=== PATIENT | female | born 1990 | race Caucasian/White ===

== ENCOUNTER 2017-01-07 15:24 | Outpatient (CLI) | payer OTHER | END 2017-01-07 15:25 | disposition home or self-care (01) | DX: G47.33 Obstructive sleep apnea (adult) (pediatric) (principal) ==

== ENCOUNTER 2017-08-19 13:38 | Outpatient (CLI) | payer OTHER | END 2017-08-19 13:39 | disposition home or self-care (01) | LOC: SC 13:38 | PROVIDERS: ATTEND Nurse Practitioner Family | DX: G47.33 Obstructive sleep apnea (adult) (pediatric) (principal) | CPT/HCPCS: 99212; 99213 ==

== ENCOUNTER 2017-10-22 15:53 | Outpatient (CLI) | payer OTHER | END 2017-10-22 15:54 | disposition home or self-care (01) | LOC: SC 15:53 | PROVIDERS: ATTEND Nurse Practitioner Family | DX: G47.33 Obstructive sleep apnea (adult) (pediatric) (principal) | CPT/HCPCS: 99212; 99213 ==

== ENCOUNTER 2018-02-09 12:51 | Inpatient (IN) | payer OTHER ==
[2018-02-09] MEDS ORDERED: ONDANSETRON 4 MG/2 ML VIAL IVP STA ×2 (13:05→16:57)
[2018-02-09] MEDS ORDERED: SODIUM CHLORIDE 0.9% 1,000 ML IV ONE ×3 (13:05→16:57)
[2018-02-09] MEDS ORDERED: ACETAMINOPHEN 325 MG TABLET PO STA (13:05)
[2018-02-09 13:18] LABS: BASOPHILS % (AUTO) 0.4 %; EOSINOPHILS # (AUTO) 0.1 10^3/uL (0.0-0.7); EOSINOPHILS % (AUTO) 0.8 %; HGB - HEMOGLOBIN 14.2 g/dL (12.0-16.0); LYMPHOCYTES # (AUTO) 0.7 10^3/uL (1.5-3.5); LYMPHOCYTES % (AUTO) 9.2 %; MEAN CORPUSCULAR HEMOGLOBIN 28.9 pg (27.0-31.0); MEAN CORPUSCULAR HGB CONC 34.3 g/dL (32.0-36.0); MEAN CORPUSCULAR VOLUME 84.3 fL (81.0-99.0); MEAN PLATELET VOLUME 8.1 fL (7.9-10.8); MONOCYTES # (AUTO) 0.8 10^3/uL (0.0-1.0); MONOCYTES % (AUTO) 11.1 %; NEUTROPHILS # (AUTO) 5.8 10^3/uL (1.5-6.6); NEUTROPHILS % (AUTO) 78.5 %; PLT - PLATELET COUNT 178 10^3/uL (130-450); RED BLOOD COUNT 4.92 10^6/uL (4.20-5.40); WHITE BLOOD COUNT 7.4 x10^3/uL (4.8-10.8)
[2018-02-09 13:23] LABS: CALCIUM 9.1 mg/dL (8.5-10.3); CREATININE 0.7 mg/dL (0.4-1.0)
--- NOTE | 2018-02-09 14:26 | ED Physician Documentation ---
History of Present Illness - Stated complaint Stated Complaint: DIFF BREATHING/DIZZY - Chief complaint Chief Complaint: Neuro - Additonal information Additional information: hx from pt 27 female healthy and denies preg felt fine yesterday awoke this am with fatigue, myalgias nausea, sore throat then developed a 5/10 ABURTO and neck pain and ABURTO comes in waves that radiate down her back also soa / tachypneic / gasping arrives in ER tearful tachy febrile edematous hands and face no rash no cough no diarrhea no urinary sx Review of Systems Constitutional: reports: Fever, Chills, Myalgias, Fatigue Ears: denies: Ear pain Throat: reports: Sore throat Respiratory: denies: Cough GI: reports: Nausea. 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 - Present Medications Home Medications: Ambulatory Orders Medication Instructions Recorded Confirmed Pt Does Not Know Meds 06/18/16 - Allergies Allergies/Adverse Reactions: Allergies Allergy/AdvReac Type Severity Reaction Status Date / Time No Known Drug Allergies Allergy Verified 01/01/14 09:58 - Social History Does the pt smoke?: No Smoking Status: Never smoker Does the pt drink ETOH?: No Does the pt have substance abuse?: No - Immunizations Immunizations are current?: Yes - POLST Patient has POLST: No PD ED PE NORMAL - Vitals Vital signs reviewed: Yes - General General: Alert and oriented X 3, Other (tearful gasping) - HEENT HEENT: PERRL - Neck Neck: No: Supple, no meningeal sign (painful to flex) - Cardiac Cardiac: RRR (tachy no murmur appreciated) - Respiratory Respiratory: No respiratory distress, Clear bilaterally, Other (tachypneic) - Abdomen Abdomen: Soft, Non tender - Derm Derm: No rash - Extremities Extremities: Other (edematous hands) - Neuro Neuro: Alert and oriented X 3 Eye Opening: Spontaneous Motor: Obeys Commands Verbal: Oriented GCS Score: 15 Results - Vitals Vitals: Vital Signs - 24 hr 02/09/18 02/09/18 02/09/18 12:54 15:08 16:30 Temperature 38.0 C H 37.3 C Heart Rate 139 H 129 H 126 H Respiratory 30 H 19 20 Rate Blood Pressure 140/90 H 127/76 127/72 O2 Saturation 100 99 98 02/09/18 18:24 Temperature Heart Rate 130 H Respiratory 18 Rate Blood Pressure 121/75 O2 Saturation 99 Oxygen O2 Source Room air - EKG (time done) 1306 Rate: Rate (enter#) (139) Rhythm: Sinus tachycardia [place]: Normal Ischemia: Normal ST segments - Labs Labs: Microbiology 02/09/18 18:05 CSF Culture - Preliminary Cerebral Spinal Fluid Laboratory Tests 02/09/18 02/09/18 02/09/18 13:10 13:10 13:10 WBC 7.4 RBC 4.92 Hgb 14.2 Hct 41.5 MCV 84.3 MCH 28.9 MCHC 34.3 RDW 13.0 Plt Count 178 MPV 8.1 Neut # 5.8 Lymph # 0.7 L [place] # 0.8 Eos # 0.1 Baso # 0.0 Absolute Nucleated RBC 0.00 Nucleated RBC % 0.0 D-Dimer Sodium 134 L Potassium 3.9 Chloride 101 Carbon Dioxide 23 Anion Gap 10.0 BUN 12 Creatinine 0.7 Estimated GFR (MDRD) 100 Glucose 98 Calcium 9.1 TSH Urine Color Urine Clarity Urine pH Ur Specific [place] Urine Protein Urine Glucose (UA) Urine Ketones Urine Occult Blood Urine Nitrite Urine Bilirubin Urine Urobilinogen Ur Leukocyte Esterase Ur Microscopic Review Urine Culture Comments Urine HCG, Qual CSF Color CSF Clarity Xanthrochromic CSF WBC CSF RBC CSF Cell Count Tube # CSF Glucose CSF Total Protein Urine Opiates Screen Ur Oxycodone Screen Urine Methadone Screen Ur Propoxyphene Screen Ur Barbiturates Screen Ur Tricyclics Screen Ur Phencyclidine Scrn Ur Amphetamine Screen U Methamphetamines Scrn U Benzodiazepines Scrn Urine Cocaine Screen U Cannabinoids Screen Influenza A (Rapid) Influenza B (Rapid) Influenza Types A,B Ag Group A Strep Rapid Negative 02/09/18 02/09/18 02/09/18 13:10 13:10 13:10 WBC RBC Hgb Hct MCV MCH MCHC RDW Plt Count MPV Neut # Lymph # [place] # Eos # Baso # Absolute Nucleated RBC Nucleated RBC % D-Dimer 201.0 Sodium Potassium Chloride Carbon Dioxide Anion Gap BUN Creatinine Estimated GFR (MDRD) Glucose Calcium TSH 0.63 Urine Color Urine Clarity Urine pH Ur Specific [place] Urine Protein Urine Glucose (UA) Urine Ketones Urine Occult Blood Urine Nitrite Urine Bilirubin Urine Urobilinogen Ur Leukocyte Esterase Ur Microscopic Review Urine Culture Comments Urine HCG, Qual CSF Color CSF Clarity Xanthrochromic CSF WBC CSF RBC CSF Cell Count Tube # CSF Glucose CSF Total Protein Urine Opiates Screen Ur Oxycodone Screen Urine Methadone Screen Ur Propoxyphene Screen Ur Barbiturates Screen Ur Tricyclics Screen Ur Phencyclidine Scrn Ur Amphetamine Screen U Methamphetamines Scrn U Benzodiazepines Scrn Urine Cocaine Screen U Cannabinoids Screen Influenza A (Rapid) Negative Influenza B (Rapid) Negative Influenza Types A,B Ag - Group A Strep Rapid 02/09/18 02/09/18 02/09/18 14:32 14:32 18:05 WBC RBC Hgb Hct MCV MCH MCHC RDW Plt Count MPV Neut # Lymph # [place] # Eos # Baso # Absolute Nucleated RBC Nucleated RBC % D-Dimer Sodium Potassium Chloride Carbon Dioxide Anion Gap BUN Creatinine Estimated GFR (MDRD) Glucose Calcium TSH Urine Color YELLOW Urine Clarity CLEAR Urine pH 7.0 Ur Specific [place] <=1.005 Urine Protein NEGATIVE Urine Glucose (UA) NEGATIVE Urine Ketones 15 H Urine Occult Blood NEGATIVE Urine Nitrite NEGATIVE Urine Bilirubin NEGATIVE Urine Urobilinogen 0.2 (NORMAL) Ur Leukocyte Esterase NEGATIVE Ur Microscopic Review NOT INDICATED Urine Culture Comments NOT INDICATED Urine HCG, Qual NEGATIVE CSF Color COLORLESS CSF Clarity CLEAR Xanthrochromic ABSENT CSF WBC 1 CSF RBC 400 H CSF Cell Count Tube # CSF TUBE# 3 CSF Glucose 55 CSF Total Protein 43 Urine Opiates Screen NEGATIVE Ur Oxycodone Screen NEGATIVE Urine Methadone Screen NEGATIVE Ur Propoxyphene Screen NEGATIVE Ur Barbiturates Screen NEGATIVE Ur Tricyclics Screen NEGATIVE Ur Phencyclidine Scrn NEGATIVE Ur Amphetamine Screen NEGATIVE U Methamphetamines Scrn NEGATIVE U Benzodiazepines Scrn NEGATIVE Urine Cocaine Screen NEGATIVE U Cannabinoids Screen NEGATIVE Influenza A (Rapid) Influenza B (Rapid) Influenza Types A,B Ag Group A Strep Rapid - Rads (name of study) CXR Radiology: See rad report (per my read poor insp but no acute process, per rad read possible RML infiltrate) CTH Radiology: See rad report (neg) PD MEDICAL DECISION MAKING - ED course ED course: acute febrile illness her primary complaint is her severe ABURTO and neck pain, SOA not her primary concern, no cough in ER neg flu swab neg rapid strep CXR neg per my read (later rad read = possible RLL atelectasis vs pna) UA neg (HCG too) d-dimer neg (and pt with no OCP smoking travel or other risk factors - doubt PE) nl CBC nl chem concern for meningitis both ER docs tried several times to LP - even with sono guidance unable - so gave 2 g rocephin - will CT - asked anesthesia to assist anesthesia able to get LP with long needle - bloody tap but cleared -sent to lab LP neg for infection, + RBC but was a bloody tap with visible clearing across tubes, only 1 WBC no organisms on gram stain CTH neg despite IVF X 3L, pain meds, antipyretic, zofran versed for tap, rocephin and then zmax pt remains stead sinus tach at approx 130 added on MUDDS and TSH (both WNL) will need admit as still very tachy and etiology unclear - for continued symptomatic support and awaiting blood/urine/CSF/throat cultures spoke with hospitalist at 1930 - will admit inpt by my read CXR poor insp but no consolidation - but rad notes possible RLL airspace dz pna vs atelectasis - pt not coughing etc - so added zmax to pts rocephin - pt and hospitalist updated hsopitalist to ER to eval pt and did beside echo which was nl with EF 55% and no pericardial effusins, no vegetations seen though limited bedside TT not diagnostic for endocarditis Departure - Departure Disposition: 66 [facility] DC/Xfer Clinical Impression: Febrile illness, Abnormal chest xray Headache Qualifiers: Headache type: unspecified Headache chronicity pattern: unspecified pattern Intractability: intractable Qualified Code(s): R51 - Headache Condition: Fair
[2018-02-09 14:53] LABS: BILIRUBIN,URINE NEGATIVE (NEGATIVE); GLUCOSE, URINE (UA) NEGATIVE (NEGATIVE); KETONES,URINE (UA) 15 mg/dL (NEGATIVE); LEUKOCYTE ESTERASE, URINE NEGATIVE (NEGATIVE); NITRITE,URINE NEGATIVE (NEGATIVE); OCCULT BLOOD,URINE NEGATIVE (NEGATIVE); PROTEIN,URINE NEGATIVE (NEGATIVE); UROBILINOGEN,URINE 0.2 (NORMAL) E.U./dL (NORMAL)
[2018-02-09 14:56] LABS: CLARITY,URINE CLEAR (CLEAR); HCG UR QUAL NEGATIVE
[2018-02-09] MEDS ORDERED: HYDROmorphone 1 MG/ML SYRINGE IVP STA ×2 (15:09→16:57)
--- NOTE | 2018-02-09 16:11 | XRAY Report ---
EXAM: CHEST RADIOGRAPHY EXAM DATE: 02/09/2018 03:52 PM. CLINICAL HISTORY: Shortness of breath and fever. COMPARISON: None. TECHNIQUE: 2 views. FINDINGS: Lungs/Pleura: Low lung volumes. No pleural effusion or pneumothorax. Bronchial wall thickening with m inimal right lower lobe airspace disease. Mediastinum: Heart and mediastinal contours are unremarkable. Other: None. IMPRESSION: Bronchial wall thickening with minimal right lower lobe airspace disease consistent with atelectasis or pneumonia. [facility] Referring Provider Line: [phone] SITE ID: [id number]
[2018-02-09] MEDS ORDERED: HYDROmorphone 1 MG/ML SYRINGE ONE (16:48)
[2018-02-09] MEDS ORDERED: LIDOCAINE 1% 2 ML VIAL ONE ×3 (16:52→17:51)
[2018-02-09] MEDS ORDERED: ONDANSETRON 4 MG/2 ML VIAL ONE (16:54)
[2018-02-09] MEDS ORDERED: MIDAZOLAM 2 MG/2 ML VIAL IVP STA (16:57)
[2018-02-09] MEDS ORDERED: cefTRIAXone 2 GM in SODIUM CHLORIDE 0.9% MINIBAG 100 ML IV STA (17:14)
[2018-02-09 18:33] LABS: CSF - GLUCOSE 55 mg/dL (45-70)
[2018-02-09 18:42] LABS: CSF TUBE # CSF TUBE# 3
[2018-02-09 18:43] LABS: CLARITY,CSF CLEAR (CLEAR); COLOR,CSF COLORLESS (COLORLESS); CSF XANTHOCHROMIA ABSENT (ABSENT); RED BLOOD CELL,CSF 400 /mm^3 (0-1); WHITE BLOOD CELL,CSF 1 /mm^3 (0-5)
[2018-02-09 18:53] LABS: MUDS CUTOFF CONCENTRATIONS CUTOFF CONC BELOW:
[2018-02-09 19:04] LABS: AMPHETAMINE SCREEN,URINE NEGATIVE (NEGATIVE); BENZODIAZEPINES SCREEN, URINE NEGATIVE (NEGATIVE); COCAINE SCREEN URINE NEGATIVE (NEGATIVE); METHADONE SCREEN, URINE NEGATIVE (NEGATIVE); METHAMPHETAMINES SCREEN, URINE NEGATIVE (NEGATIVE); OPIATE SCREEN, URINE NEGATIVE (NEGATIVE); OXYCODONE SCREEN, URINE NEGATIVE (NEGATIVE); PROPOXYPHENE SCREEN, URINE NEGATIVE (NEGATIVE); TRICYCLIC ANTIDEPRESSANT,URINE NEGATIVE (NEGATIVE)
[2018-02-09] MEDS ORDERED: ACETAMINOPHEN 1,000 MG/100 ML 100 ML IV STA (19:07)
--- NOTE | 2018-02-09 19:07 | CT Report ---
EXAM: CT HEAD EXAM DATE: 02/09/2018 06:50 PM. CLINICAL HISTORY: Fever headache, bloody tap, question intracranial hemorrhage. COMPARISON: MR brain 02-25-16. TECHNIQUE: Multiaxial CT images were obtained from the foramen magnum to the vertex. Reformats: Coron al. IV contrast: None. In accordance with CT protocol optimization, one or more of the following dose reduction techniques w ere utilized for this exam: automated exposure control, adjustment of mA and/or KV based on patient s ize, or use of iterative reconstructive technique. FINDINGS: Parenchyma: No intraparenchymal hemorrhage. No evidence of mass, midline shift, or CT findings of inf arction. Maurer-white differentiation is distinct. Extraaxial Spaces: Normal for age. No subdural or epidural collections identified. Ventricles: Normal in size and position. Sinuses and Orbits: Imaged paranasal sinuses, orbits, and mastoids show no significant abnormality. Bones: No evidence of fracture or calvarial defect. Other: None. IMPRESSION: Normal head CT. [facility] Referring Provider Line: [phone] SITE ID: [id number]
[2018-02-09] MEDS ORDERED: AZITHROMYCIN INJ 500 MG in SODIUM CHLORIDE 0.9% 250 ML IV STA (19:32)
[2018-02-09] MEDS ORDERED: HYDROmorphone 1 MG/ML SYRINGE IVP PRN (20:12)
[2018-02-09] MEDS ORDERED: PROMETHAZINE INJ 25 MG in SODIUM CHLORIDE 0.9% 50 ML IV STA (20:17)
[2018-02-09] MEDS ORDERED: MAGNESIUM SULFATE 2 GRAM 2 GM/50 ML BAG IV SCH (21:16)
[2018-02-09] MEDS ORDERED: SODIUM CHLORIDE FLUSH 0.9% 10 ML SYRINGE ONE (21:59)
[2018-02-09] MEDS: PANTOPRAZOLE 40 MG VIAL IVP SCH (22:01)
[2018-02-09] MEDS: SODIUM CHLORIDE FLUSH 0.9% 10 ML SYRINGE IVP PRN (22:01)
[2018-02-09] MEDS: DEXTROSE 5%-0.9% NACL 1,000 ML IV SCH (22:01)
[2018-02-10] MEDS: SODIUM CHLORIDE FLUSH 0.9% 10 ML SYRINGE IVP SCH ×3 (00:49→16:18)
[2018-02-10] MEDS: ACETAMINOPHEN 1,000 MG/100 ML 100 ML IV PRN (01:00)
[2018-02-10] MEDS: PROCHLORPERAZINE 10 MG/2 ML VIAL IVP PRN ×2 (01:00→18:51)
[2018-02-10] MEDS: SODIUM CHLORIDE FLUSH 0.9% 10 ML SYRINGE IVP PRN ×5 (06:08→14:31)
[2018-02-10] MEDS: PANTOPRAZOLE 40 MG VIAL IVP SCH ×2 (06:08→16:17)
[2018-02-10 06:09] LABS: BASOPHILS % (AUTO) 0.5 %; EOSINOPHILS % (AUTO) 0.1 %; HGB - HEMOGLOBIN 13.1 g/dL (12.0-16.0); LYMPHOCYTES # (AUTO) 0.8 10^3/uL (1.5-3.5); LYMPHOCYTES % (AUTO) 19.6 %; MEAN CORPUSCULAR HEMOGLOBIN 28.5 pg (27.0-31.0); MEAN CORPUSCULAR HGB CONC 33.6 g/dL (32.0-36.0); MEAN CORPUSCULAR VOLUME 84.9 fL (81.0-99.0); MEAN PLATELET VOLUME 8.5 fL (7.9-10.8); MONOCYTES # (AUTO) 0.8 10^3/uL (0.0-1.0); MONOCYTES % (AUTO) 17.9 %; NEUTROPHILS # (AUTO) 2.6 10^3/uL (1.5-6.6); NEUTROPHILS % (AUTO) 61.9 %; PLT - PLATELET COUNT 148 10^3/uL (130-450); RED BLOOD COUNT 4.59 10^6/uL (4.20-5.40); RED CELL DISTRIBUTION WIDTH 13.1 % (12.0-15.0); WHITE BLOOD COUNT 4.3 x10^3/uL (4.8-10.8)
[2018-02-10 06:14] LABS: CALCIUM 7.9 mg/dL (8.5-10.3); CREATININE 0.6 mg/dL (0.4-1.0); MAGNESIUM 2.3 mg/dL (1.7-2.8)
--- NOTE | 2018-02-10 07:25 | HISTORY & PHYSICAL EXAMINATION ---
DATE OF SERVICE: Physician: Conchita Weinstein MD HISTORY OF PRESENT ILLNESS: This is a 27-year-old white female with a history of remote kidney stones and a history of sleep apnea, using CPAP. The patient awoke this morning and started to get a headache that was so bad she had to lie down, this led to overall achiness "as if she was having the flu", and then she developed nausea and dry heaves. Her friends brought her to the emergency room. There, she was noted to have a fever and her headache got worse. She underwent a workup for a source of infection for the fever and headache including chest x-ray, throat culture, blood cultures, urinalysis and culture, and even spinal tap. Her serum white count came back normal. Her head CT did not show any evidence of abnormality and her spinal tap had 1 white blood cell. Chest x-ray is showing pneumonia and she is being admitted for viral syndrome and community-acquired pneumonia. PAST MEDICAL HISTORY: Remote kidney stones and sleep apnea on CPAP. MEDICATIONS AT HOME: None. ALLERGIES: NONE. INHERITED DISEASES: None. SOCIAL HISTORY: Nonsmoker who never smoked, drinks no alcohol, uses no illicit drugs. 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 She lives with 3 young children. REVIEW OF SYSTEMS: Her youngest and second youngest children, of 3, recently had upper respiratory infections including fevers and rhinorrhea. She has been caring for them without the help of her , who is in the [employer] and currently deployed, and is very tired. She has not had rhinorrhea. No other exposure to sick people, or travel or animal bites. The patient denies any prior history of this type of presentation. The patient denies any rash, or abdominal symptoms. Her past kidney stone presentations cause low back pain, not these types of symptoms. Since she has been in the emergency room for 6 hours, she has noticed puffiness of her fingers and ankles (getting iv fluids). A comprehensive ROS was done and all other systems are negative. PHYSICAL EXAMINATION GENERAL: Obese, young, white female. She is in a left lateral decubitus position, nauseated with an emesis basin near her mouth. VITAL SIGNS: Blood pressure 140/90, heart rate 140 in sinus tachycardia, temperature 38 degrees C,, respiratory rate 30, oxygen saturation 100% on room air. HEENT: Unremarkable with moist oral mucosa. NECK: Shows no JVD or carotid bruits. LUNGS: Diminished breath sounds diffusely, but clear. No wheezes or rales. HEART: Heart sounds are distant. No audible murmurs. ABDOMEN: Obese with positive bowel sounds. Nontender. EXTREMITIES: Show trace pretibial edema and trace edema of the fingers. NEUROLOGIC: Grossly intact. LABS: Normal CBC, CMP, troponin, urinalysis, HCG negative, csf fluid had 1 WBC. EKG: Sinus tachycardia, diffuse T-wave flattening. CHEST X-RAY: Minimal right lower lobe airspace disease. IMPRESSION 1. Viral syndrome. 2. Community-acquired pneumonia. 3. Headache with negative head computerized tomography and negative lumbar puncture evaluation for meningitis. 4. Obesity. 5. Sleep apnea, on CPAP. PLAN: Admit the patient for treatment of community-acquired pneumonia with empiric IV antibiotics: Ceftriaxone and Zithromax. Await her cultures, and it will take at least 48 hours for us to determine if the blood culture and CSF cultures are entirely negative. Stop the IV hydration at this rapid rate, which is being used to try to improve the tachycardia. Treat her fever with Tylenol. The tachycardia may respond when her headache is treated. Recommend checking for more rare etiologies for fever in this type of presentation such as Lyme disease, Legionnaires disease, and myocarditis by checking Lyme titer, Legionella titer, and troponins. Obtain an Echo to rule out endocarditis. Start clear liquids and advance her diet if not nauseated. CODE STATUS: FULL CODE. DEEP VENOUS THROMBOSIS PROPHYLAXIS: SCDs. ATTESTATION: The patient is expected to be discharged or transferred to another facility within 96 hours. TD: 02/10/2018 07:24 CLARISA
--- NOTE | 2018-02-10 07:31 | PROVIDER PROGRESS NOTE ---
Subjective - Prog Note Date Prog Note Date: 02/10/18 Prog Note Time: 07:31 - Subjective Pt reports feeling: No change Subjective: Patient complains of "the whole room spinning and blurred vision" when getting up to use the rest room. She denies chest pain, N/V, shortness of breath, or a new cough. Current Medications - Current Medications Current Medications: Active Medications Albuterol/Ipratropium (Duoneb) 3 ml INH TID JERMAINE Albuterol/Ipratropium (Duoneb) 3 ml INH Q4HR PRN PRN Reason: Wheezing Cyclobenzaprine HCl (Flexeril) 5 mg PO TID [facility] Fluticasone Propionate (Flonase) 1 sprays [facility] DAILY [facility] Hydromorphone HCl (Dilaudid Inj Carp) 0.5 mg IVP Q2HR PRN PRN Reason: PAIN 8 - 10 Last Admin: 02/10/18 14:30 Dose: 0.5 mg Dextrose/Sodium Chloride (D5ns) 1,000 mls @ 40 mls/hr IV .Q25H [facility] Last Admin: 02/09/18 22:01 Dose: 40 mls/hr Acetaminophen (Ofirmev) 100 mls @ 400 mls/hr IV Q6HR PRN PRN Reason: Pain or Fever > 38C (100.4F) Last Infusion: 02/10/18 01:15 Dose: Infused Azithromycin 500 mg/ Sodium (Chloride) 250 mls @ 250 mls/hr IV Q24H [facility] Ceftriaxone Sodium 1 gm/ (Sodium Chloride) 100 mls @ 200 mls/hr IV Q24H [facility] Ondansetron HCl (Zofran Odt) 4 mg TL Q4HR PRN PRN Reason: Nausea / Vomiting Oxymetazoline HCl (Afrin) 2 sprays [facility] BID [facility] Stop: 02/13/18 20:59 Pantoprazole Sodium (Protonix) 40 mg IVP BIDAC [facility] Last Admin: 02/10/18 06:08 Dose: 40 mg Polyethylene Glycol (Miralax) 17 gm PO DAILY [facility] Last Admin: 02/10/18 09:21 Dose: Not Given Prochlorperazine Edisylate (Compazine Inj) 10 mg IVP Q6HR PRN PRN Reason: Nausea / Vomiting Last Admin: 02/10/18 01:00 Dose: 10 mg Sodium Chloride (Normal Saline Flush 0.9%) 10 ml IVP PRN PRN PRN Reason: NEEDED PER PROVIDER ORDERS Last Admin: 02/10/18 14:31 Dose: 10 ml Sodium Chloride (Normal Saline Flush 0.9%) 10 ml IVP 0100,0900,1700 JERMAINE Last Admin: 02/10/18 09:21 Dose: Not Given Sodium Chloride (Castro) 2 sprays YOSHI Q4HR PRN PRN Reason: Nasal Congestion No Known Home Medications [No Known Home Medications] 02/10/18 Objective - Vital Signs/Intake & Output Reviewed Vital Signs: Yes Vital Signs: Vital Signs x48h Temp Pulse Resp BP Pulse Ox 02/10/18 05:00 37.3 C 95 16 118/68 96 02/10/18 00:31 37.1 C 109 H 16 117/67 97 Intake & Output: Intake & Output 02/07/18 02/08/18 02/09/18 02/10/18 23:59 23:59 23:59 23:59 Intake Total 421 150 Output Total 600 Balance -179 150 - Objective General Appearance: positive: Alert, Moderate distress, Anxious Eyes Bilateral: positive: Normal inspection ENT: positive: ENT inspection nml, Pharynx nml, Dry mucous membranes, Other ( tympanic membranes bilaterally have fluid appearance.) Neck: positive: Nml inspection, Thyroid nml Respiratory: positive: Chest non-tender, No respiratory distress, Breath sounds nml, Other (scattered crackles in bilateral lungs.) Cardiovascular: positive: Regular rate & rhythm, No murmur, No gallop, Tachycardia, Decreased pulse(s) Peripheral Pulses: 2+ Radial (R), 2+ Radial (L) Abdomen: positive: Non-tender, Nml bowel sounds, Other (obese, soft) Back: positive: Nml inspection Skin: positive: No rash, Warm, Dry, Pallor Extremities: positive: Non-tender, Full ROM, Nml appearance Neurologic/Psychiatric: positive: Oriented x3, CN's nml (2-12), Motor nml, Sensation nml, Depressed mood/affect Reflexes: Bicep (R): 3+, Bicep (L): 3+, Ankle (R): 3+, Ankle (L): 3+ - Lab Results Fish Bones: 02/10/18 05:18 02/10/18 05:18 Other Labs: Lab Results x24hrs 02/10/18 02/10/18 Range/Units 05:18 05:18 WBC 4.3 L (4.8-10.8) x10^3/uL RBC 4.59 (4.20-5.40) 10^6/uL Hgb 13.1 (12.0-16.0) g/dL Hct 38.9 (37.0-47.0) % MCV 84.9 (81.0-99.0) fL MCH 28.5 (27.0-31.0) pg MCHC 33.6 (32.0-36.0) g/dL RDW 13.1 (12.0-15.0) % Plt Count 148 (130-450) 10^3/uL MPV 8.5 (7.9-10.8) fL Neut # 2.6 (1.5-6.6) 10^3/uL Lymph # 0.8 L (1.5-3.5) 10^3/uL [place] # 0.8 (0.0-1.0) 10^3/uL Eos # 0.0 (0.0-0.7) 10^3/uL Baso # 0.0 (0.0-0.1) 10^3/uL Absolute Nucleated RBC 0.00 x10^3/uL Nucleated RBC % 0.1 /100WBC Sodium 136 (135-145) mmol/L Potassium 3.8 (3.5-5.0) mmol/L Chloride 107 (101-111) mmol/L Carbon Dioxide 22 (21-32) mmol/L Anion Gap 7.0 (6-13) BUN 6 (6-20) mg/dL Creatinine 0.6 (0.4-1.0) mg/dL Estimated GFR (MDRD) 119 (>89) Glucose 104 H (70-100) mg/dL Calcium 7.9 L (8.5-10.3) mg/dL Magnesium 2.3 (1.7-2.8) mg/dL - Diagnostic Imaging Diagnostic Imaging Results: positive: Prelim report reviewed, Final report reviewed Assessment/Plan - Problem List (1) Chronic sinusitis Impression: Upon exam patient is noted to have gross fluid behind tympanic membranes. (2) Vertigo Impression: Patient states that this has happened in the past and was sent to a neuro- opthamologist who narrowed down vertigo/migraines to a certain muscle group in her neck that became tight and irritated her head causing headaches. She notes that this becomes worse upon rising, but improves when she is still. Upon exam , there is copious amounts of fluid noted behind bilateral tympanic membranes. Plan: Start flexeril, nasal sprays, start nebs for pneumonia. A pure wick was ordered due to severe vertigo. (3) Headache Impression: Patient has a history of migraines and has been previously worked up for vertigo and similar symptoms. Plan: Continue with pain medications and a muscle relaxer was added. Qualifiers: Headache type: unspecified Headache chronicity pattern: unspecified pattern Intractability: intractable Qualified Code(s): R51 - Headache (4) Right lower lobe pneumonia Impression: Per imaging at the time of admission there is noted to be right lower lobe pneumonia consistent with pneumonia. Plan: Continue with IV antibiotics, incentive spirometry, and nebulizers per RT. (5) Fever Impression: Patient presented with a fever. Max temp today was 37.7. A spinal tap was ordered and the final results are pending. Plan: Continue work up. Will check UA.
[2018-02-10] MEDS: POLYETHYLENE GLYCOL 3350 17 GM PACKET PO SCH (09:21)
[2018-02-10] MEDS: HYDROmorphone 1 MG/ML CARPUJECT IVP PRN ×5 (09:31→18:48)
[2018-02-10] MEDS ORDERED: GADOBUTROL 10 MMOL/10 ML VIAL ONE (09:35)
[2018-02-10] MEDS ORDERED: GADOBUTROL 10 MMOL/10 ML VIAL IVP ONE (11:51)
--- NOTE | 2018-02-10 12:44 | MRI Preliminary Report ---
Exam: MRI BRAIN W/WO Impression: 1. Unremarkable brain MRI. No evidence of infarction, hemorrhage, space-occupying mass lesion or othe r acute intracranial pathology. 2. Absence of normal, T1 hyperintense fatty marrow signal in the clivus with differential diagnostic considerations as briefly described above SITE ID: [id number]
--- NOTE | 2018-02-10 13:38 | MRI Report ---
MRI BRAIN WITHOUT AND WITH CONTRAST INDICATION: 27-year-old female with fever and headache. Recent "bloody tap". TECHNIQUE: 1. T1 sagittal and fat-saturated T2 coronal. 2. Axial T1 MP RAGE, FLAIR, T2, T2* and DWI. 3. 9 mL IV Gadavist. T1 3-D MP RAGE axial. COMPARISON: Unenhanced head CT 02/09/2018 and a brain MRI without contrast from 02/25/2016. FINDINGS: Ventricular size is normal. Signal intensity of cortex and white matter appears normal throughout. Flow voids are demonstrated in the main intracranial arteries. No abnormal diffusion restriction is d emonstrated. No evidence of acute or chronic hemorrhage on T2*GRE sequence. No enhancing space-occupying mass lesion is demonstrated. No abnormal meningeal or cranial nerve enha ncement is identified. There appears to be normal intravascular contrast enhancement in the dural jeri ous sinuses and deep venous structures. This effectively excludes possibility of venous thrombosis. No abnormal extraaxial fluid collection. No mass effect or midline shift. There is bilateral exophthalmos of uncertain etiology. No intraorbital mass lesion is demonstrated. L imited assessment of the orbits reveals no gross abnormality. There is mucosal thickening scattered t hroughout the ethmoid and maxillary sinuses. No air-fluid levels demonstrated. No mastoid or middle e ar effusion. Of note, marrow signal in the clivus appears abnormally hypointense on the T1 sagittal sequence. Norm ally one would expect to see diffuse T1 hyperintense, fatty marrow change even at this young age. Thi s suggests the possibility of marrow reconversion due to underlying anemia. Patients who are smokers can also have this appearance. There is mild prominence of the posterior nasopharyngeal soft tissues consistent with benign adenoida l hyperplasia. No associated airway compromise. IMPRESSION: 1. Unremarkable brain MRI. No evidence of infarction, hemorrhage, space-occupying mass lesion, or oth er acute intracranial pathology. 2. Absence of normal, T1 hyperintense fatty marrow signal in the clivus with the differential diagnos tic considerations as briefly described above. Referring Provider Line: [phone] SITE ID: [id number]
[2018-02-10] MEDS ORDERED: SODIUM CHLORIDE 0.65% NASAL SPRAY NAS PRN (15:14)
[2018-02-10] MEDS ORDERED: IPRATROPIUM/ALBUTEROL 3 ML NEB INH PRN (15:14)
[2018-02-10] MEDS ORDERED: IPRATROPIUM/ALBUTEROL 3 ML NEB INH SCH (16:00)
[2018-02-10] MEDS: FLUTICASONE NASAL SPRAY NAS SCH (16:17)
[2018-02-10] MEDS: CYCLOBENZAPRINE 10 MG TABLET PO SCH ×2 (16:18→21:17)
[2018-02-10] MEDS: cefTRIAXone 1 GM in SODIUM CHLORIDE 0.9% MINIBAG 100 ML IV SCH (18:54)
[2018-02-10] MEDS: AZITHROMYCIN INJ 500 MG in SODIUM CHLORIDE 0.9% 250 ML IV SCH (21:17)
[2018-02-10] MEDS: ONDANSETRON ODT 4 MG TABLET TL PRN (21:35)
[2018-02-10] MEDS: OXYMETAZOLINE NASAL SPRAY NAS SCH (22:01)
[2018-02-10] MEDS: DEXTROSE 5%-0.9% NACL 1,000 ML IV SCH (22:31)
[2018-02-10] MEDS: IPRATROPIUM/ALBUTEROL 3 ML NEB INH SCH (22:40)
[2018-02-11] MEDS: ACETAMINOPHEN 1,000 MG/100 ML 100 ML IV PRN ×2 (00:02→10:53)
[2018-02-11] MEDS: SODIUM CHLORIDE FLUSH 0.9% 10 ML SYRINGE IVP SCH ×3 (00:06→16:09)
[2018-02-11] MEDS: CYCLOBENZAPRINE 10 MG TABLET PO SCH ×3 (06:07→22:26)
[2018-02-11] MEDS: PANTOPRAZOLE 40 MG VIAL IVP SCH ×2 (06:07→16:08)
[2018-02-11] MEDS: SODIUM CHLORIDE FLUSH 0.9% 10 ML SYRINGE IVP PRN ×5 (06:08→22:27)
[2018-02-11 06:27] LABS: BASOPHILS % (AUTO) 0.9 %; EOSINOPHILS % (AUTO) 0.1 %; HGB - HEMOGLOBIN 12.8 g/dL (12.0-16.0); LYMPHOCYTES # (AUTO) 1.2 10^3/uL (1.5-3.5); LYMPHOCYTES % (AUTO) 39.5 %; MEAN CORPUSCULAR HEMOGLOBIN 27.9 pg (27.0-31.0); MEAN CORPUSCULAR HGB CONC 32.7 g/dL (32.0-36.0); MEAN CORPUSCULAR VOLUME 85.5 fL (81.0-99.0); MEAN PLATELET VOLUME 7.9 fL (7.9-10.8); MONOCYTES # (AUTO) 0.5 10^3/uL (0.0-1.0); MONOCYTES % (AUTO) 15.3 %; NEUTROPHILS # (AUTO) 1.3 10^3/uL (1.5-6.6); NEUTROPHILS % (AUTO) 44.2 %; PLT - PLATELET COUNT 154 10^3/uL (130-450); RED BLOOD COUNT 4.58 10^6/uL (4.20-5.40); RED CELL DISTRIBUTION WIDTH 13.5 % (12.0-15.0)
[2018-02-11 06:34] LABS: ALBUMIN 3.6 g/dL (3.2-5.5); ALBUMIN/GLOBULIN RATIO 1.1 (1.0-2.2); BILIRUBIN,TOTAL 0.5 mg/dL (0.2-1.0); CALCIUM 8.4 mg/dL (8.5-10.3); CREATININE 0.6 mg/dL (0.4-1.0); MAGNESIUM 1.9 mg/dL (1.7-2.8); TOTAL PROTEIN 6.9 g/dL (6.7-8.2)
[2018-02-11] MEDS: POLYETHYLENE GLYCOL 3350 17 GM PACKET PO SCH (09:42)
[2018-02-11] MEDS: OXYMETAZOLINE NASAL SPRAY NAS SCH ×2 (09:49→20:16)
[2018-02-11] MEDS: FLUTICASONE NASAL SPRAY NAS SCH (09:50)
[2018-02-11] MEDS: IPRATROPIUM/ALBUTEROL 3 ML NEB INH SCH (11:00)
[2018-02-11] MEDS: methylPREDNISolone SUCCINATE 40 MG/ML VIAL IVP SCH ×2 (13:16→22:27)
[2018-02-11] MEDS: ACETAMINOPHEN 325 MG TABLET PO PRN (16:08)
--- NOTE | 2018-02-11 16:53 | PROVIDER PROGRESS NOTE ---
Subjective - Prog Note Date Prog Note Date: 02/11/18 Prog Note Time: 08:00 - Subjective Pt reports feeling: Improved Subjective: Jessica admits to vast improvement as compared to yesterday, but has ongoing headaches, dizziness and her ears feel full of fluid. Current Medications - Current Medications Current Medications: Active Medications Acetaminophen (Tylenol) 650 mg PO Q4HR PRN PRN Reason: Pain or Fever > 38C (100.4F) Last Admin: 02/11/18 16:08 Dose: 650 mg Albuterol/Ipratropium (Duoneb) 3 ml INH Q4HR PRN PRN Reason: Wheezing Albuterol/Ipratropium (Duoneb) 3 ml INH RTBID JERMAINE Cyclobenzaprine HCl (Flexeril) 5 mg PO TID [facility] Last Admin: 02/11/18 13:16 Dose: 5 mg Fluticasone Propionate (Flonase) 1 sprays YOSHI DAILY [facility] Last Admin: 02/11/18 09:50 Dose: 1 spr Hydromorphone HCl (Dilaudid Inj Carp) 0.5 mg IVP Q2HR PRN PRN Reason: PAIN 8 - 10 Last Admin: 02/10/18 18:48 Dose: 0.5 mg Dextrose/Sodium Chloride (D5ns) 1,000 mls @ 40 mls/hr IV .Q25H [facility] Last Admin: 02/10/18 22:31 Dose: 40 mls/hr Azithromycin 500 mg/ Sodium (Chloride) 250 mls @ 250 mls/hr IV Q24H [facility] Last Infusion: 02/10/18 22:30 Dose: Infused Ceftriaxone Sodium 1 gm/ (Sodium Chloride) 100 mls @ 200 mls/hr IV Q24H [facility] Last Infusion: 02/10/18 19:24 Dose: Infused Methylprednisolone (Solu-Medrol (40mg Vial)) 40 mg IVP TID [facility] Last Admin: 02/11/18 13:16 Dose: 40 mg Ondansetron HCl (Zofran Odt) 4 mg TL Q4HR PRN PRN Reason: Nausea / Vomiting Last Admin: 02/10/18 21:35 Dose: 4 mg Oxymetazoline HCl (Afrin) 2 sprays YOSHI BID [facility] Stop: 02/13/18 20:59 Last Admin: 02/11/18 09:49 Dose: 1 spr Pantoprazole Sodium (Protonix) 40 mg IVP BIDAC [facility] Last Admin: 02/11/18 16:08 Dose: 40 mg Polyethylene Glycol (Miralax) 17 gm PO DAILY [facility] Last Admin: 02/11/18 09:42 Dose: Not Given Prochlorperazine Edisylate (Compazine Inj) 10 mg IVP Q6HR PRN PRN Reason: Nausea / Vomiting Last Admin: 02/10/18 18:51 Dose: 10 mg Sodium Chloride (Normal Saline Flush 0.9%) 10 ml IVP PRN PRN PRN Reason: NEEDED PER PROVIDER ORDERS Last Admin: 02/11/18 16:09 Dose: 10 ml Sodium Chloride (Normal Saline Flush 0.9%) 10 ml IVP 0100,0900,1700 [facility] Last Admin: 02/11/18 16:09 Dose: 10 ml Sodium Chloride (Barbour) 2 sprays YOSHI Q4HR PRN PRN Reason: Nasal Congestion Last Admin: 02/10/18 21:17 Dose: 1 spr No Known Home Medications [No Known Home Medications] 02/10/18 Objective - Vital Signs/Intake & Output Reviewed Vital Signs: Yes Vital Signs: Vital Signs x48h Temp Pulse Pulse Resp BP Pulse Ox 02/11/18 15:44 36.8 C 98 20 112/65 94 02/11/18 12:34 36.4 C L 101 H 18 111/58 L 98 02/11/18 11:00 103 H 12 Intake & Output: Intake & Output 02/08/18 02/09/18 02/10/18 02/11/18 23:59 23:59 23:59 23:59 Intake Total 421 2326 1170 Output Total 708 553 2129 Balance -179 1726 20 - Objective General Appearance: positive: Alert, Moderate distress Eyes Bilateral: positive: Normal inspection, PERRL ENT: positive: ENT inspection nml, Pharynx nml, Dry mucous membranes, Other ( previous exam revealed full appearing tympanic membranes bilaterally.) Neck: positive: Nml inspection, Thyroid nml, No JVD, Trachea midline Respiratory: positive: Chest non-tender, No respiratory distress Cardiovascular: positive: Regular rate & rhythm, No murmur, No gallop, Tachycardia Peripheral Pulses: 1+ Radial (R), 1+ Radial (L) Abdomen: positive: Non-tender, Nml bowel sounds, Other (rounded, obese.) Back: positive: Nml inspection Skin: positive: No rash, Warm, Dry, Pallor Extremities: positive: Non-tender, Full ROM, Nml appearance Neurologic/Psychiatric: positive: Oriented x3, CN's nml (2-12), Motor nml, Sensation nml, Depressed mood/affect Reflexes: Bicep (R): 3+, Bicep (L): 3+ - Lab Results Fish Bones: 02/12/18 05:40 02/12/18 05:40 Other Labs: Lab Results x24hrs 02/11/18 02/11/18 02/11/18 Range/Units 06:14 06:14 06:14 WBC 3.0 L (4.8-10.8) x10^3/uL RBC 4.58 (4.20-5.40) 10^6/uL Hgb 12.8 (12.0-16.0) g/dL Hct 39.2 (37.0-47.0) % MCV 85.5 (81.0-99.0) fL MCH 27.9 (27.0-31.0) pg MCHC 32.7 (32.0-36.0) g/dL RDW 13.5 (12.0-15.0) % Plt Count 154 (130-450) 10^3/uL MPV 7.9 (7.9-10.8) fL Neut # 1.3 L (1.5-6.6) 10^3/uL Lymph # 1.2 L (1.5-3.5) 10^3/uL Peach # 0.5 (0.0-1.0) 10^3/uL Eos # 0.0 (0.0-0.7) 10^3/uL Baso # 0.0 (0.0-0.1) 10^3/uL Absolute Nucleated RBC 0.00 x10^3/uL Nucleated RBC % 0.0 /100WBC Sodium 137 (135-145) mmol/L Potassium 3.6 (3.5-5.0) mmol/L Chloride 106 (101-111) mmol/L Carbon Dioxide 24 (21-32) mmol/L Anion Gap 7.0 (6-13) BUN 6 (6-20) mg/dL Creatinine 0.6 (0.4-1.0) mg/dL Estimated GFR (MDRD) 119 (>89) Glucose 94 (70-100) mg/dL Lactic Acid 0.7 (0.5-2.2) mmol/L Calcium 8.4 L (8.5-10.3) mg/dL Magnesium 1.9 (1.7-2.8) mg/dL Total Bilirubin 0.5 (0.2-1.0) mg/dL AST 19 (10-42) IU/L ALT 17 (10-60) IU/L Alkaline Phosphatase 36 L (42-121) IU/L Total Protein 6.9 (6.7-8.2) g/dL Albumin 3.6 (3.2-5.5) g/dL Globulin 3.3 (2.1-4.2) g/dL Albumin/Globulin Ratio 1.1 (1.0-2.2) - Diagnostic Imaging Diagnostic Imaging Results: positive: Final report reviewed Assessment/Plan - Problem List (1) Chronic sinusitis Impression: Upon exam yesterday patient is noted to have gross fluid behind tympanic membranes. Patient c/o having chronic "stuffed up nose". She also uses her CPAP each night for her known ANASTACIA. Plan: Continue nasal sprays, and treat for acute sinusitis. (2) Vertigo Impression: Patient states that this has happened in the past and was sent to a neuro- opthamologist who narrowed down vertigo/migraines to a certain muscle group in her neck that became tight and irritated her head causing headaches. She notes that this becomes worse upon rising, but improves when she is still. Upon exam yesterday, copious amounts of fluid was noted behind bilateral tympanic membranes. Plan: Start flexeril, nasal sprays, start nebs for pneumonia. A pure wick was ordered due to severe vertigo. (3) Headache Impression: Patient has a history of migraines and has been previously worked up for vertigo and similar symptoms. Patient continues to c/o labile HAs that becomes worsened with ambulating to the bathroom. Plan: Continue with pain medications and a muscle relaxer was added. Qualifiers: Headache type: unspecified Headache chronicity pattern: unspecified pattern Intractability: intractable Qualified Code(s): R51 - Headache (4) Right lower lobe pneumonia Impression: Per imaging at the time of admission there is noted to be right lower lobe pneumonia consistent with pneumonia. Patient denies productive cough or SOB, although states that she continues to have "low energy". Plan: Continue with IV antibiotics, incentive spirometry, and nebulizers per RT. (5) Fever Impression: Patient presented with a fever. Max temp today was 37.7. A spinal tap was ordered and the final results are pending, UA pending. Unable to obtain an adequate sputum sample at this time. Plan: Continue to monitor VS. (6) Strep throat Impression: A throat culture obtained in the ED was + for Group A step. Patient denies cough, which is consistent with this result. She does note her throat to be "very scratchy". Plan: Continue antibiotics and symptom management. (7) ANASTACIA (obstructive sleep apnea) Impression: Patient has a known history of ANASTACIA and is compliant with her home devise. RT was consulted to inspect the unit for a possible cause of her PNA on this admission. Plan: Continue current plan to ensure CPAP use as she does at home.
[2018-02-11] MEDS: HYDROmorphone 1 MG/ML CARPUJECT IVP PRN ×3 (17:51→23:54)
[2018-02-11] MEDS: cefTRIAXone 1 GM in SODIUM CHLORIDE 0.9% MINIBAG 100 ML IV SCH (18:37)
[2018-02-11] MEDS ORDERED: IPRATROPIUM/ALBUTEROL 3 ML NEB INH SCH (19:00)
[2018-02-11] MEDS: AZITHROMYCIN INJ 500 MG in SODIUM CHLORIDE 0.9% 250 ML IV SCH (20:07)
[2018-02-11] MEDS: ONDANSETRON ODT 4 MG TABLET TL PRN (21:28)
[2018-02-12] MEDS: SODIUM CHLORIDE FLUSH 0.9% 10 ML SYRINGE IVP SCH ×2 (00:30→09:50)
[2018-02-12] MEDS: ACETAMINOPHEN 325 MG TABLET PO PRN ×2 (00:57→06:23)
[2018-02-12] MEDS: DEXTROSE 5%-0.9% NACL 1,000 ML IV SCH (00:58)
[2018-02-12 05:58] LABS: BASOPHILS % (AUTO) 0.4 %; HGB - HEMOGLOBIN 13.9 g/dL (12.0-16.0); LYMPHOCYTES # (AUTO) 0.9 10^3/uL (1.5-3.5); LYMPHOCYTES % (AUTO) 14.3 %; MEAN CORPUSCULAR HEMOGLOBIN 27.8 pg (27.0-31.0); MEAN CORPUSCULAR HGB CONC 32.6 g/dL (32.0-36.0); MEAN CORPUSCULAR VOLUME 85.3 fL (81.0-99.0); MEAN PLATELET VOLUME 8.2 fL (7.9-10.8); MONOCYTES # (AUTO) 0.3 10^3/uL (0.0-1.0); MONOCYTES % (AUTO) 3.9 %; NEUTROPHILS # (AUTO) 5.2 10^3/uL (1.5-6.6); NEUTROPHILS % (AUTO) 81.4 %; PLT - PLATELET COUNT 203 10^3/uL (130-450); RED BLOOD COUNT 4.98 10^6/uL (4.20-5.40); RED CELL DISTRIBUTION WIDTH 13.7 % (12.0-15.0); WHITE BLOOD COUNT 6.3 x10^3/uL (4.8-10.8)
[2018-02-12 06:15] LABS: ALBUMIN 4.2 g/dL (3.2-5.5); ALBUMIN/GLOBULIN RATIO 1.2 (1.0-2.2); BILIRUBIN,TOTAL 0.5 mg/dL (0.2-1.0); CREATININE 0.6 mg/dL (0.4-1.0); TOTAL PROTEIN 7.6 g/dL (6.7-8.2)
[2018-02-12] MEDS: CYCLOBENZAPRINE 10 MG TABLET PO SCH (06:23)
[2018-02-12] MEDS: PANTOPRAZOLE 40 MG VIAL IVP SCH (06:25)
[2018-02-12] MEDS: SODIUM CHLORIDE FLUSH 0.9% 10 ML SYRINGE IVP PRN (06:25)
[2018-02-12] MEDS: methylPREDNISolone SUCCINATE 40 MG/ML VIAL IVP SCH (06:25)
[2018-02-12] MEDS ORDERED: CYCLOBENZAPRINE 10 MG TABLET PO PRN (09:04)
[2018-02-12] MEDS ORDERED: CLINDAMYCIN 150 MG CAPSULE PO SCH (10:00)
[2018-02-12] MEDS ORDERED: SACCHAROMYCES BOULARDII 250 MG CAPSULE PO SCH (10:00)
[2018-02-12] MEDS: OXYMETAZOLINE NASAL SPRAY NAS SCH (10:07)
[2018-02-12] MEDS: FLUTICASONE NASAL SPRAY NAS SCH (10:08)
[2018-02-12] MEDS: POLYETHYLENE GLYCOL 3350 17 GM PACKET PO SCH (10:09)
[2018-02-12 11:40] VITALS: BP 123/70
--- NOTE | 2018-02-12 11:53 | Discharge Plan ---
Discharge Plan Disposition: Home, Self Care Condition: Good Prescriptions: Clindamycin [Cleocin] 450 mg PO TID 10 Days #90 capsule Cyclobenzaprine [Flexeril] 5 mg PO TID PRN #20 tablet PRN Reason: Headache Fluconazole [Diflucan] 150 mg PO DAILY #5 tablet Fluticasone [Flonase] 1 sprays YOSHI DAILY #5 bottle Pantoprazole [Protonix] 40 mg PO DAILY #30 tablet predniSONE [Prednisone] 20 mg PO DAILY 6 Days #9 tablet Saccharomyces Boulardii [Florastor] 250 mg PO BID 20 Days #40 capsule Diet: Regular Activity Restrictions: No Restrictions Shower Restrictions: No Driving Restrictions: No Weight Bearing: Full Weight Instruction Topics: Pneumonia, Strep Throat Additional Instructions or Follow Up instructions: You were admitted for severe dizziness, fevers, and headaches. A spinal tap was completed and remains no growth to date. You were found to have very clogged ears, so based on your symptoms you were treated for sinusitis. Your throat cultures was + for strep, also you were found to have pneumonia per imaging. You should complete all of your antibiotics as prescribed. Please see your PCP within one week. Ask your family for help with the children. You may feel more tired than usual. No Smoking: If you smoke, Please STOP! Call for help. Follow-up with: CAROLINE BARTH [Primary Care Provider] -
--- NOTE | 2018-02-12 11:59 | DISCHARGE SUMMARY ---
Discharge Summary Admit Date: 02/09/18 Discharge Date: 02/12/18 Discharging Provider: BART Rivera Primary Care Provider: Chela Mancilla Code Status: Attempt Resuscitation Condition at Discharge: Good Discharge Disposition: 01 Home, Self Care - DIAGNOSES Admission Diagnoses: Viral infection, unspecified (B34.9) Pneumonia, unspecified organism (J18.9) Obesity, unspecified (E66.9) Obstructive sleep apnea (adult) (pediatric) (G47.33) Headache (R51) Discharge Diagnoses with Status of Each Condition: Headache (R51)- improved and very mild at the time of discharge. Chronic sinusitis (J32.9)- ongoing and treatment to continue. Vertigo (R42)- improved. Right lower lobe pneumonia (J18.1)- treatment to continue, stable. Fever (R50.9)- resolved. Strep throat (J02.0)- stable, treatment to continue. ANASTACIA (obstructive sleep apnea) (G47.33)- chronic, stable. - HPI History of Present Illness: Jessica Marks is a young 27-year old white female with a past medical history of vertigo, headaches, ANASTACIA and compliant with home CPAP, kidney stones and has 3 healthy children. She claims that she awoke this AM and started to get a headache that was so bad that she had to lie down, followed by body aches, nausea with dry heaves and a fever. She was brought to the ED by friends as her is currently deployed through the and is in [facility]. Once in the ED she underwent a work up for a source of infection for the fever including a spinal tap, chest x-ray, throat culture, blood cultures, UA and culture. Her spinal tap preliminary shows WBCs, head CT was normal, but chest x -ray shows pneumonia. She will be admitted to inpatient for further work up and symptom control. - HOSPITAL COURSE Hospital Course: (1) Chronic sinusitis Upon exam patient is noted to have gross fluid behind tympanic membranes. (2) Vertigo Patient states that this has happened in the past and was sent to a neuro- opthamologist who narrowed down vertigo/migraines to a certain muscle group in her neck that became tight and irritated her head causing headaches. She notes that this becomes worse upon rising, but improves when she is still. Upon exam , there is copious amounts of fluid noted behind bilateral tympanic membranes. Plan: Start flexeril, nasal sprays, start nebs for pneumonia. A pure wick was ordered due to severe vertigo. (3) Headache Patient has a history of migraines and has been previously worked up for vertigo and similar symptoms. Plan: Continue with pain medications and a muscle relaxer was added. (4) Right lower lobe pneumonia Per imaging at the time of admission there is noted to be right lower lobe pneumonia consistent with pneumonia. Plan: Continue with IV antibiotics, incentive spirometry, and nebulizers per RT. (5) Fever Patient presented with a fever. Max temp today was 37.7. A spinal tap was ordered and the final results are pending. Plan: Continue work up. Will check UA. - ALLERGIES Allergies/Adverse Reactions: Allergies Allergy/AdvReac Type Severity Reaction Status Date / Time No Known Drug Allergies Allergy Verified 01/01/14 09:58 - MEDICATIONS Home Medications: Ambulatory Orders Medication Instructions Recorded Confirmed Clindamycin [Cleocin] 450 mg PO TID 10 Days #90 capsule 02/12/18 Cyclobenzaprine [Flexeril] 5 mg PO TID PRN #20 tablet 02/12/18 Fluticasone [Flonase] 1 sprays YOSHI DAILY #5 bottle 02/12/18 Pantoprazole [Protonix] 40 mg PO DAILY #30 tablet 02/12/18 Saccharomyces Boulardii [Florastor] 250 mg PO BID 20 Days #40 capsule 02/12/18 predniSONE [Prednisone] 20 mg PO DAILY 6 Days #9 tablet 02/12/18 Fluconazole [Diflucan] 150 mg PO DAILY #5 tablet 02/14/18 - PHYSICAL EXAM AT DISCHARGE General Appearance: positive: No acute distress, Alert Eyes Bilateral: positive: Normal inspection ENT: positive: ENT inspection nml, Pharynx nml, Dry mucous membranes, Other ( bilateral typmanic membranes with less fluid noted than earlier exam.) Neck: positive: Nml inspection, Thyroid nml, No JVD, Other (large neck circ.) Respiratory: positive: Chest non-tender, No respiratory distress, Breath sounds nml Cardiovascular: positive: Regular rate & rhythm, No gallop Peripheral Pulses: positive: 2+ Abdomen: positive: Non-tender, No organomegaly, Nml bowel sounds Back: positive: Nml inspection Skin: positive: No rash, Warm, Dry Extremities: positive: Non-tender, Full ROM, Nml appearance, No pedal edema Neurologic/Psychiatric: positive: Oriented x3, CN's nml (2-12), Motor nml, Sensation nml, Mood/affect nml Reflexes: Bicep (R): 4+, Bicep (L): 4+ - LABS Result Diagrams: 02/12/18 05:40 02/12/18 05:40 - DIAGNOSTIC IMAGING Diagnostic Imaging Results: Final report reviewed Diagnostic Imaging Results Comments: EXAM: CHEST RADIOGRAPHY EXAM DATE: 02/09/2018 03:52 PM. CLINICAL HISTORY: Shortness of breath and fever. COMPARISON: None. TECHNIQUE: 2 views. FINDINGS: Lungs/Pleura: Low lung volumes. No pleural effusion or pneumothorax. Bronchial wall thickening with minimal right lower lobe airspace disease. Mediastinum: Heart and mediastinal contours are unremarkable. Other: None. IMPRESSION: Bronchial wall thickening with minimal right lower lobe airspace disease consistent with atelectasis or pneumonia. EXAM: CT HEAD EXAM DATE: 02/09/2018 06:50 PM. CLINICAL HISTORY: Fever headache, bloody tap, question intracranial hemorrhage. COMPARISON: MR brain 02-25-16. TECHNIQUE: Multiaxial CT images were obtained from the foramen magnum to the vertex. Reformats: Coronal. IV contrast: None. In accordance with CT protocol optimization, one or more of the following dose reduction techniques were utilized for this exam: automated exposure control, adjustment of mA and/or KV based on patient size, or use of iterative reconstructive technique. FINDINGS: Parenchyma: No intraparenchymal hemorrhage. No evidence of mass, midline shift, or CT findings of infarction. Maurer-white differentiation is distinct. Extraaxial Spaces: Normal for age. No subdural or epidural collections identified. Ventricles: Normal in size and position. Sinuses and Orbits: Imaged paranasal sinuses, orbits, and mastoids show no significant abnormality. Bones: No evidence of fracture or calvarial defect. Other: None. IMPRESSION: Normal head CT. MRI BRAIN WITHOUT AND WITH CONTRAST INDICATION: 27-year-old female with fever and headache. Recent "bloody tap". TECHNIQUE: 1. T1 sagittal and fat-saturated T2 coronal. 2. Axial T1 MP RAGE, FLAIR, T2, T2* and DWI. 3. 9 mL IV Gadavist. T1 3-D MP RAGE axial. COMPARISON: Unenhanced head CT 02/09/2018 and a brain MRI without contrast from 02/25/2016. FINDINGS: Ventricular size is normal. Signal intensity of cortex and white matter appears normal throughout. Flow voids are demonstrated in the main intracranial arteries. No abnormal diffusion restriction is demonstrated. No evidence of acute or chronic hemorrhage on T2*GRE sequence. No enhancing space-occupying mass lesion is demonstrated. No abnormal meningeal or cranial nerve enhancement is identified. There appears to be normal intravascular contrast enhancement in the dural venous sinuses and deep venous structures. This effectively excludes possibility of venous thrombosis. No abnormal extraaxial fluid collection. No mass effect or midline shift. There is bilateral exophthalmos of uncertain etiology. No intraorbital mass lesion is demonstrated. Limited assessment of the orbits reveals no gross abnormality. There is mucosal thickening scattered throughout the ethmoid and maxillary sinuses. No air-fluid levels demonstrated. No mastoid or middle ear effusion. Of note, marrow signal in the clivus appears abnormally hypointense on the T1 sagittal sequence. Normally one would expect to see diffuse T1 hyperintense, fatty marrow change even at this young age. This suggests the possibility of marrow reconversion due to underlying anemia. Patients who are smokers can also have this appearance. There is mild prominence of the posterior nasopharyngeal soft tissues consistent with benign adenoidal hyperplasia. No associated airway compromise. IMPRESSION: 1. Unremarkable brain MRI. No evidence of infarction, hemorrhage, space-occupying mass lesion, or other acute intracranial pathology. - FOLLOW UP Follow Up: Disposition: 01 Home, Self Care Condition: Good Prescriptions: Clindamycin [Cleocin] 450 mg PO TID 10 Days #90 capsule Cyclobenzaprine [Flexeril] 5 mg PO TID PRN #20 tablet PRN Reason: Headache Fluticasone [Flonase] 1 sprays YOSHI DAILY #5 bottle Pantoprazole [Protonix] 40 mg PO DAILY #30 tablet predniSONE [Prednisone] 20 mg PO DAILY 6 Days #9 tablet Saccharomyces Boulardii [Florastor] 250 mg PO BID 20 Days #40 capsule Diet: Regular Activity Restrictions: No Restrictions Shower Restrictions: No Driving Restrictions: No Weight Bearing: Full Weight Additional Instructions or Follow Up instructions: You were admitted for severe dizziness, fevers, and headaches. A spinal tap was completed and remains no growth to date. You were found to have very clogged ears, so based on your symptoms you were treated for sinusitis. Your throat cultures was + for strep, also you were found to have pneumonia per imaging. You should complete all of your antibiotics as prescribed. Please see your PCP within one week. Ask your family for help with the children. You may feel more tired than usual. - TIME SPENT Time Spent in Discharge (Minutes): 45
[2018-02-12 17:06] LABS: 18 KD (IGG) BAND NON-REACTIVE; 23 KD (IGG) BAND NON-REACTIVE; 23 KD (IGM) BLOT NON-REACTIVE; 28 KD (IGG) BAND NON-REACTIVE; 30 KD (IGG) BAND NON-REACTIVE; 39 KD (IGG) BAND NON-REACTIVE; 39 KD (IGM) BLOT NON-REACTIVE; 41 KD (IGG) BAND REACTIVE; 41 KD (IGM) BLOT NON-REACTIVE; 45 KD (IGG) BAND NON-REACTIVE; 58 KD (IGG) BAND NON-REACTIVE; 66 KD (IGG) BAND NON-REACTIVE; 93 KD (IGG) BAND REACTIVE
[2018-02-12] MEDS ORDERED: methylPREDNISolone SUCCINATE 40 MG/ML VIAL IVP SCH (21:00)
== END 2018-02-12 13:00 | disposition home or self-care (01) | DRG 195 ==
LOC: ED 12:51 → MS2 20:12
PROVIDERS: ADMIT Internal Medicine; ATTEND Nurse Practitioner
DX: J18.1 Lobar pneumonia, unspecified organism (principal); J32.9 Chronic sinusitis, unspecified; R42 Dizziness and giddiness; J02.0 Streptococcal pharyngitis; B95.5 Unspecified streptococcus as the cause of diseases classified elsewhere; G47.33 Obstructive sleep apnea (adult) (pediatric); R51 Headache; E66.9 Obesity, unspecified; Z68.35 Body mass index [BMI] 35.0-35.9, adult; Z86.69 Personal history of other diseases of the nervous system and sense organs; Z87.442 Personal history of urinary calculi; Z99.89 Dependence on other enabling machines and devices
CPT/HCPCS: 36415; 62270; 70450; 70553; 71046; 80048; 80053; 80306; 81001; 81003; 81025; 82945; 83605; 83735; 84157; 84443; 84484; 85025; 85379; 86617; 87070; 87086; 87205; 87275; 87276; 87430; 87449; 89051; 93005; 93306; 94640; 96361; 96365; 96367; 96368; 96375; 96376; 99284